=== PATIENT | female | born 1980 | race Caucasian/White ===

== ENCOUNTER 2017-02-21 11:52 | Emergency (ER) | payer OTHER ==
[~2017-02-21] VITALS: Ht 160 cm; Wt 60.9 kg
[2017-02-21 11:56] VITALS: BP 142/95; PULSE 85; RESP 14; O2SAT 100
--- NOTE | 2017-02-21 12:07 | ED.REPORT ---
HPI-Headache Date of Service Feb 21, 2017 ED Provider: History of Present Illness: headache for a month, sinus infection given antibiotics, no help. Last Sunday, vomiting seen at urgent care given immitrex some help. head pain is constant. primary care is shah at [facility] appointment tomorrow for headache. 02/26. no hx of headaches. upped wellbutrin from 300 to 450. Nursing Notes Stated Complaint: MIGRAINE Chief Complaint: Headache Nursing Notes Reviewed: Yes Allergies: Coded Allergies: ciprofloxacin (Verified Adverse Reaction, Unknown, 02/21/17) General Time Seen by MD: 12:07 Chief Complaint Other (headache) Hx Obtained From: Patient Sudden in Onset?: No Past Medical History Past Medical History Denies: Asthma, Diabetes mellitus Past Surgical History lap times 5 Reports: Appendectomy, Smoking History Former Smoker (quit 1 week ago 02/21/2017) Social History Alcohol Use: Denies alcohol use Drug Use: Denies drug use Occupation lives with boyfriend, work at [employer] Status Independent Review of Systems Basic Review of Systems Respiratory: No shortness of breath, No cough, No wheeze Hematologic: No bleeding, No bruising Allergy / Immune: No allergy Physical Exam Initial Vital Signs Vital Signs (First) Date Time Temp Pulse Resp B/P Pulse Ox O2 Delivery O2 Flow Rate FiO2 02/21/17 11:56 36.6 85 14 142/95 100 02/21/17 14:19 Room Air Initial VS: Reviewed, Vital signs normal ENT: Mucous membranes moist, Conjunctiva normal, No scleral icterus Respiratory: Breath sounds normal, Clear to auscultation, No respiratory distress Cardiovascular: Regular rate & rhythm, Heart sounds normal, Intact distal pulses Abdomen / GI: Soft, Non-tender, No guarding, No rebound, No distention Back: No CVA tenderness Lymphatic: No lymphadenopathy Extremities: Vascular intact, Neuro intact, No swelling, No tenderness Skin: Warm, Dry, No cyanosis Psychiatric: Mood/affect normal, Behavior normal, Normal thought content General/Constitutional: Awake, Alert, No acute distress, Well appearing, Well developed, Well hydrated, Well nourished, Cooperative, Not toxic appearing Head / Eyes: Atraumatic, Normocephalic, PERRL, EOMI Neck: Atraumatic, Supple, No meningismus, Full range of motion Neurologic: Oriented X3, Speech NL, No motor deficits, No sensory deficits, CN II - XII intact, Reflexes equal bilat, Cerebellar NL, Memory NL, Gait NL Respiratory / Chest: Atraumatic, Breath sounds NL, Breath sounds = bilat Cardiovascular: Heart rate NL, Regular rhythm, Heart sounds NL, No gallop Abdomen: Atraumatic, Soft, Non-tender Interpretation & Diagnostics Lab Results Interpretation Result Diagram: 02/21/17 1250 02/21/17 1250 Test 02/21/17 12:50 White Blood Count 7.0th/mm3 (3.8-10.1) Red Blood Count 5.04mil/mm3 (3.90-5.20) Hemoglobin 14.5g/dL (12.0-15.6) Hematocrit 42.7% (35.0-46.0) Mean Corpuscular Volume 84.7fL (81-100) Mean Corpuscular Hemoglobin 28.8pg (27.0-35.0) Mean Corpuscular Hemoglobin Concent 34.0% (32.0-37.0) Red Cell Distribution Width 13.4% (12.3-15.4) Platelet Count 249bil/L (150-400) Neutrophils (%) (Auto) 69.2% (40-74) Lymphocytes (%) (Auto) 19.2% (14-46) Monocytes (%) (Auto) 8.6% (4-12) Eosinophils (%) (Auto) 2.4% (0-5) Basophils (%) (Auto) 0.3% (0-3) Hold Urine Received (Received) Sodium Level 138mEq/L (134-144) Potassium Level 3.7mEq/L (3.5-5.2) Chloride Level 102mEq/L (97-108) Carbon Dioxide Level 24mmol/L (18-29) Blood Urea Nitrogen 11mg/dL (6-20) Creatinine 0.84mg/dL (0.57-1.00) Estimat Glomerular Filtration Rate 111mL/min (>59) Glucose Level 106mg/dL (60-99) Calcium Level 9.2mg/dL (8.5-10.1) Total Bilirubin 0.4mg/dL (0.0-1.2) Aspartate Amino Transf (AST/SGOT) 13U/L (0-50) Alanine Aminotransferase (ALT/SGPT) 22U/L (0-32) Alkaline Phosphatase 51U/L (25-150) Total Protein 7.2g/dL (6.4-8.4) Albumin 4.1g/dL (3.4-5.0) Hold Baum Top Tube Received (Received) CT Head Interpretation ECHNIQUE: Noncontrast 4.5 mm thick angled axial sections acquired from the foramen magnum to the vertex, with coronal reformats. COMPARISON: None. FINDINGS: Image quality: Diagnostic. Brain: There is no acute intra-axial or extra-axial hemorrhage. No extra-axial fluid collection is identified. There is no midline shift or mass effect. The orbits are grossly unremarkable. No large areas of diffusely decreased attenuation are evident within the brain to suggest diffuse cerebral edema. No focal parenchymal abnormality is identified. The ventricles and cortical sulci are age-appropriate. Bones: Calvarium and visualized facial bones are grossly intact. The imaged paranasal sinuses and mastoid air cells are clear. IMPRESSION: Negative head CT. No acute intracranial hemorrhage or obvious parenchymal mass. The need for further evaluation utilizing MRI should be determined clinically. Dictated by: Freddie Taveras M.D. on 02/21/2017 at 13:30 Approved by: Freddie Taveras M.D. on 02/21/2017 at 13:32 Re-Eval/Medical Decision Med Decision/Clinical Course 36 year old female presents for evualtion of headache of [address] is normal. Headache meds have decreased pain to a 3. No sign of closed head injury or dental infection Discharge & Departure Impression: Primary Impression: Headache Headache chronicity pattern: chronic headache Disposition: Home Patient Instructions: Acute Headache (ED) Additional Instructions: The head CT is normal. your labs are normal. there has been some decrease in the pain with the medication in the ER. The headache can be caused by the wellbutrin. Please check with your primary care provider tomorrow to see if he/ she has any other ideas. Can use haldol tonight if the pain continue. EDSupervising Provider for [facility]: Antoni Toro Sue ARNP Feb 21, 2017 12:07
[2017-02-21] MEDS ORDERED: 0.9% Sodium Chloride 1,000 ML IV ONE (12:20)
[2017-02-21] MEDS ORDERED: Dexamethasone Inj 10 MG in 0.9% Sodium Chloride-Pha MIX 50 ML IV ONE (12:20)
[2017-02-21 12:59] LABS: BASOPHILS % (AUTO) 0.3 % (0-3); EOSINOPHILS % (AUTO) 2.4 % (0-5); MONOCYTES % (AUTO) 8.6 % (4-12); Mean Corpuscular Hemoglobin 28.8 pg (27.0-35.0); Mean Corpuscular Volume 84.7 fL (81-100); NEUTROPHILS % (AUTO) 69.2 % (40-74); Platelet Count 249 bil/L (150-400)
[2017-02-21 14:19] VITALS: BP 110/74; PULSE 84; RESP 14; O2SAT 99
--- NOTE | 2017-02-21 14:33 | DRSVH ---
PROCEDURE: CT BRAIN WITHOUT CONTRAST ([id number]) INDICATIONS: headache TECHNIQUE: Noncontrast 4.5 mm thick angled axial sections acquired from the foramen magnum to the vertex, with c oronal reformats. COMPARISON: None. FINDINGS: Image quality: Diagnostic. Brain: There is no acute intra-axial or extra-axial hemorrhage. No extra-axial fluid collection is i dentified. There is no midline shift or mass effect. The orbits are grossly unremarkable. No large areas of diffusely decreased attenuation are evident within the brain to suggest diffuse cer ebral edema. No focal parenchymal abnormality is identified. The ventricles and cortical sulci are age-appropriate. Bones: Calvarium and visualized facial bones are grossly intact. The imaged paranasal sinuses and m astoid air cells are clear. IMPRESSION: Negative head CT. No acute intracranial hemorrhage or obvious parenchymal mass. The nee d for further evaluation utilizing MRI should be determined clinically. Dictated by: Freddie Taveras M.D. on 02/21/2017 at 13:30 Approved by: rFeddie Taveras M.D. on 02/21/2017 at 13:32
== END 2017-02-21 15:28 | disposition home or self-care (01) ==
LOC: SED 11:52
DX: R51 Headache (principal); G89.29 Other chronic pain; Z87.891 Personal history of nicotine dependence; Z88.1 Allergy status to other antibiotic agents
CPT/HCPCS: 36415; 70450; 80053; 81002; 81025; 85025; 96361; 96374; 96375; 99285; J1100; J1200; J1885; J7030